=== PATIENT | female | born 1945 | race American Indian/Alaskan Native ===

== ENCOUNTER 2016-06-11 09:00 | Outpatient (CLI) | payer MEDICARE ==
[~2016-06-11 09:00] MED LIST: XYLOCAINE TOPICAL 2% TP ONE
[2016-06-11] MEDS ORDERED: SANTYL TP ONE (10:02)
[2016-06-12] MEDS ORDERED: XYLOCAINE TOPICAL 2% TP ONE (09:30)
[2016-06-12] MEDS ORDERED: SANTYL TP SCH (10:00)
== END 2016-06-11 09:01 | disposition home or self-care (01) ==
LOC: WOUND 09:00
PROVIDERS: ATTEND Internal Medicine
DX: I87.311 Chronic venous hypertension (idiopathic) with ulcer of right lower extremity (principal); L97.912 Non-pressure chronic ulcer of unspecified part of right lower leg with fat layer exposed; L89.893 Pressure ulcer of other site, stage 3; M21.371 Foot drop, right foot; I10 Essential (primary) hypertension; E78.2 Mixed hyperlipidemia; R26.9 Unspecified abnormalities of gait and mobility; Z85.038 Personal history of other malignant neoplasm of large intestine
CPT/HCPCS: 11042; 11045; G0463

== ENCOUNTER 2016-06-13 08:48 | Outpatient (CLI) | payer MEDICARE, OTHER ==
--- NOTE | 2016-06-16 09:49 | Vascular Lab Report ---
LOWER EXTREMITY VENOUS DUPLEX: REASON FOR EXAM: Bilateral leg pain. COMMENTS ON THE RIGHT: All veins visualized are freely compressible without evidence of internal echogenicity. Flow is spontaneous and phasic throughout. COMMENTS ON THE LEFT: All veins visualized are freely compressible without evidence of internal echogenicity. Flow is spontaneous and phasic throughout. IMPRESSION: No evidence of acute or chronic deep venous thrombosis in either lower extremity.
== END 2016-06-13 08:49 | disposition home or self-care (01) ==
LOC: VAS 08:48
PROVIDERS: ATTEND Internal Medicine
DX: T81.89XA Other complications of procedures, not elsewhere classified, initial encounter (principal); M79.604 Pain in right leg
CPT/HCPCS: 93970

== ENCOUNTER 2016-06-16 08:12 | Outpatient (CLI) | payer MEDICARE, OTHER ==
[2016-06-16] MEDS ORDERED: XYLOCAINE TOPICAL 2% TP ONE ×2 (08:30→14:25)
[2016-06-16] MEDS ORDERED: SANTYL TP ONE (09:18)
== END 2016-06-16 08:13 | disposition home or self-care (01) ==
LOC: WOUND 08:12
PROVIDERS: ATTEND Internal Medicine
DX: I87.311 Chronic venous hypertension (idiopathic) with ulcer of right lower extremity (principal); L97.912 Non-pressure chronic ulcer of unspecified part of right lower leg with fat layer exposed; M21.371 Foot drop, right foot; I10 Essential (primary) hypertension; E78.2 Mixed hyperlipidemia; L89.893 Pressure ulcer of other site, stage 3; R26.9 Unspecified abnormalities of gait and mobility; Z85.038 Personal history of other malignant neoplasm of large intestine

== ENCOUNTER 2016-06-20 08:10 | Outpatient (CLI) | payer MEDICARE, OTHER ==
--- NOTE | 2016-06-20 14:16 | Vascular Lab Report ---
LOWER EXTREMITY ARTERIAL DUPLEX: REASON FOR EXAM: Leg pain. COMMENTS ON THE RIGHT: Monophasic waveforms are seen proximally. Monophasic waveforms are seen distally. No significant velocity gradients are identified. No focal significant plaque is identified. Findings are consistent with abnormal perfusion. Findings are inconsistent with the ability to heal distal wounds. COMMENTS ON THE LEFT: Monophasic waveforms are seen proximally. Monophasic waveforms are seen distally. No significant velocity gradients are identified. No focal significant plaque is identified. Findings are consistent with abnormal perfusion. Findings are inconsistent with the ability to heal distal wounds. IMPRESSION: RIGHT: No hemodynamically significant arterial occlusive disease in arteries examined. LEFT:No hemodynamic significant arterial occlusive disease in arteries examined Monophasic waveforms suggestive inflow aortic or iliac disease. Clinical correlation recommended.
== END 2016-06-20 08:11 | disposition home or self-care (01) ==
LOC: VAS 08:10
PROVIDERS: ATTEND Internal Medicine
DX: M79.604 Pain in right leg (principal)
CPT/HCPCS: 93925

== ENCOUNTER 2016-06-23 08:11 | Outpatient (CLI) | payer MEDICARE, OTHER ==
[2016-06-23] MEDS ORDERED: XYLOCAINE TOPICAL 4% TP ONE (08:22)
[2016-06-23] MEDS ORDERED: SANTYL TP ONE (08:22)
== END 2016-06-23 08:12 | disposition home or self-care (01) ==
LOC: WOUND 08:11
PROVIDERS: ATTEND Internal Medicine
DX: I87.311 Chronic venous hypertension (idiopathic) with ulcer of right lower extremity (principal); L97.811 Non-pressure chronic ulcer of other part of right lower leg limited to breakdown of skin; E78.2 Mixed hyperlipidemia; M21.371 Foot drop, right foot; Z85.038 Personal history of other malignant neoplasm of large intestine

== ENCOUNTER 2016-07-02 08:14 | Outpatient (CLI) | payer MEDICARE, OTHER ==
[2016-07-02] MEDS ORDERED: XYLOCAINE TOPICAL 4% TP ONE ×2 (08:44→09:02)
[2016-07-02] MEDS ORDERED: SANTYL TP ONE ×2 (09:13→09:38)
== END 2016-07-02 08:15 | disposition home or self-care (01) ==
LOC: WOUND 08:14
PROVIDERS: ATTEND Internal Medicine
DX: I87.2 Venous insufficiency (chronic) (peripheral) (principal); L97.812 Non-pressure chronic ulcer of other part of right lower leg with fat layer exposed; L89.892 Pressure ulcer of other site, stage 2; E78.2 Mixed hyperlipidemia; I10 Essential (primary) hypertension; M21.371 Foot drop, right foot; E78.5 Hyperlipidemia, unspecified; Z85.038 Personal history of other malignant neoplasm of large intestine

== ENCOUNTER 2016-07-09 08:09 | Outpatient (CLI) | payer MEDICARE, OTHER ==
[2016-07-09] MEDS ORDERED: XYLOCAINE TOPICAL 4% TP ONE ×2 (08:31→08:41)
[2016-07-09] MEDS ORDERED: SANTYL TP ONE ×2 (09:55→10:11)
== END 2016-07-09 08:10 | disposition home or self-care (01) ==
LOC: WOUND 08:09
PROVIDERS: ATTEND Internal Medicine
DX: I87.311 Chronic venous hypertension (idiopathic) with ulcer of right lower extremity (principal); L97.812 Non-pressure chronic ulcer of other part of right lower leg with fat layer exposed; E78.2 Mixed hyperlipidemia; M21.371 Foot drop, right foot; L89.892 Pressure ulcer of other site, stage 2; E43 Unspecified severe protein-calorie malnutrition; Z85.038 Personal history of other malignant neoplasm of large intestine
CPT/HCPCS: 11042; C5271; Q4102

== ENCOUNTER 2016-07-21 08:09 | Outpatient (CLI) | payer MEDICARE, OTHER ==
[2016-07-21] MEDS ORDERED: XYLOCAINE TOPICAL 4% TP ONE ×2 (08:22→11:40)
[2016-07-21] MEDS ORDERED: SANTYL TP ONE (09:12)
== END 2016-07-21 08:10 | disposition home or self-care (01) ==
LOC: WOUND 08:09
PROVIDERS: ATTEND Internal Medicine
DX: T86.820 Skin graft (allograft) rejection (principal); I87.311 Chronic venous hypertension (idiopathic) with ulcer of right lower extremity; L97.812 Non-pressure chronic ulcer of other part of right lower leg with fat layer exposed; E78.2 Mixed hyperlipidemia; M21.371 Foot drop, right foot; E78.5 Hyperlipidemia, unspecified; E43 Unspecified severe protein-calorie malnutrition; Z86.73 Personal history of transient ischemic attack (TIA), and cerebral infarction without residual deficits; Z85.038 Personal history of other malignant neoplasm of large intestine; Y83.2 Surgical operation with anastomosis, bypass or graft as the cause of abnormal reaction of the patient, or of later complication, without mention of misadventure at the time of the procedure

== ENCOUNTER 2016-07-22 08:30 | Outpatient (CLI) | payer MEDICARE, OTHER ==
--- NOTE | 2016-07-22 08:59 | XRay Report ---
ROUTINE CHEST, TWO VIEWS: HISTORY: Shortness of breath. No comparison. There is mild hyperinflation versus good inspiration. The trachea, heart, mediastinal contour, lung carranza and bony thorax are unremarkable. IMPRESSION: Mild hyperinflation. No acute process.
== END 2016-07-22 08:31 | disposition home or self-care (01) ==
LOC: XRAY 08:30
PROVIDERS: ATTEND Internal Medicine
DX: J98.11 Atelectasis (principal)
CPT/HCPCS: 71020

== ENCOUNTER 2016-07-28 08:18 | Outpatient (CLI) | payer MEDICARE, OTHER ==
[~2016-07-28 08:18] MED LIST changes: +SANTYL TP ONE; -XYLOCAINE TOPICAL 2% TP ONE
[2016-07-28] MEDS ORDERED: XYLOCAINE TOPICAL 4% TP ONE ×2 (08:38→16:58)
[2016-07-28] MEDS ORDERED: SANTYL TP ONE (09:11)
== END 2016-07-28 08:19 | disposition home or self-care (01) ==
LOC: WOUND 08:18
PROVIDERS: ATTEND Internal Medicine
DX: T86.828 Other complications of skin graft (allograft) (autograft) (principal); I87.311 Chronic venous hypertension (idiopathic) with ulcer of right lower extremity; L97.812 Non-pressure chronic ulcer of other part of right lower leg with fat layer exposed; E78.2 Mixed hyperlipidemia; M21.371 Foot drop, right foot; E43 Unspecified severe protein-calorie malnutrition; Z85.038 Personal history of other malignant neoplasm of large intestine; Y83.2 Surgical operation with anastomosis, bypass or graft as the cause of abnormal reaction of the patient, or of later complication, without mention of misadventure at the time of the procedure
CPT/HCPCS: 11042; C5271; Q4102

== ENCOUNTER 2016-08-04 08:15 | Outpatient (CLI) | payer MEDICARE, OTHER ==
[2016-08-04] MEDS ORDERED: XYLOCAINE TOPICAL 4% TP ONE ×2 (08:31→11:45)
[2016-08-04] MEDS ORDERED: SANTYL TP ONE ×2 (09:26→11:45)
== END 2016-08-04 08:16 | disposition home or self-care (01) ==
LOC: WOUND 08:15
PROVIDERS: ATTEND Internal Medicine
DX: T86.821 Skin graft (allograft) (autograft) failure (principal); I87.311 Chronic venous hypertension (idiopathic) with ulcer of right lower extremity; L97.812 Non-pressure chronic ulcer of other part of right lower leg with fat layer exposed; M21.371 Foot drop, right foot; E78.2 Mixed hyperlipidemia; I10 Essential (primary) hypertension; E43 Unspecified severe protein-calorie malnutrition; Z85.038 Personal history of other malignant neoplasm of large intestine; Z86.73 Personal history of transient ischemic attack (TIA), and cerebral infarction without residual deficits; Y83.2 Surgical operation with anastomosis, bypass or graft as the cause of abnormal reaction of the patient, or of later complication, without mention of misadventure at the time of the procedure
CPT/HCPCS: 11042; 87075; 87116; C5271; Q4102

== ENCOUNTER 2016-08-18 08:17 | Outpatient (CLI) | payer MEDICARE, OTHER ==
[2016-08-18] MEDS ORDERED: XYLOCAINE TOPICAL 2% TP ONE ×2 (08:24→13:08)
[2016-08-18] MEDS ORDERED: SANTYL TP ONE (09:30)
== END 2016-08-18 08:18 | disposition home or self-care (01) ==
LOC: WOUND 08:17
PROVIDERS: ATTEND Internal Medicine
DX: T86.820 Skin graft (allograft) rejection (principal); I87.311 Chronic venous hypertension (idiopathic) with ulcer of right lower extremity; L97.812 Non-pressure chronic ulcer of other part of right lower leg with fat layer exposed; E78.2 Mixed hyperlipidemia; L89.893 Pressure ulcer of other site, stage 3; E43 Unspecified severe protein-calorie malnutrition; M21.371 Foot drop, right foot; Q89.9 Congenital malformation, unspecified; Z86.69 Personal history of other diseases of the nervous system and sense organs; Z85.038 Personal history of other malignant neoplasm of large intestine; Y83.2 Surgical operation with anastomosis, bypass or graft as the cause of abnormal reaction of the patient, or of later complication, without mention of misadventure at the time of the procedure

== ENCOUNTER 2016-08-25 08:17 | Outpatient (CLI) | payer MEDICARE, OTHER ==
[~2016-08-25 08:17] MED LIST changes: -SANTYL TP ONE; +XYLOCAINE TOPICAL 4% TP ONE
[2016-08-25] MEDS ORDERED: XYLOCAINE TOPICAL 4% TP ONE (08:45)
[2016-08-25] MEDS ORDERED: SANTYL TP ONE (09:08)
== END 2016-08-25 08:18 | disposition home or self-care (01) ==
LOC: WOUND 08:17
PROVIDERS: ATTEND Internal Medicine
DX: T86.820 Skin graft (allograft) rejection (principal); I87.311 Chronic venous hypertension (idiopathic) with ulcer of right lower extremity; L89.893 Pressure ulcer of other site, stage 3; L97.811 Non-pressure chronic ulcer of other part of right lower leg limited to breakdown of skin; E78.2 Mixed hyperlipidemia; M21.371 Foot drop, right foot; E43 Unspecified severe protein-calorie malnutrition; Z85.038 Personal history of other malignant neoplasm of large intestine; Y83.2 Surgical operation with anastomosis, bypass or graft as the cause of abnormal reaction of the patient, or of later complication, without mention of misadventure at the time of the procedure

== ENCOUNTER 2016-09-01 08:14 | Outpatient (CLI) | payer MEDICARE, OTHER ==
[2016-09-01] MEDS ORDERED: XYLOCAINE TOPICAL 4% TP ONE ×2 (08:25→17:28)
== END 2016-09-01 08:15 | disposition home or self-care (01) ==
LOC: WOUND 08:14
PROVIDERS: ATTEND Surgery
DX: T86.820 Skin graft (allograft) rejection (principal); I87.311 Chronic venous hypertension (idiopathic) with ulcer of right lower extremity; L97.811 Non-pressure chronic ulcer of other part of right lower leg limited to breakdown of skin; L89.893 Pressure ulcer of other site, stage 3; E43 Unspecified severe protein-calorie malnutrition; M21.371 Foot drop, right foot; E78.2 Mixed hyperlipidemia; E78.5 Hyperlipidemia, unspecified; Z85.038 Personal history of other malignant neoplasm of large intestine; Y83.2 Surgical operation with anastomosis, bypass or graft as the cause of abnormal reaction of the patient, or of later complication, without mention of misadventure at the time of the procedure
CPT/HCPCS: 97597

== ENCOUNTER 2016-09-08 08:18 | Outpatient (CLI) | payer MEDICARE, OTHER ==
[2016-09-08] MEDS ORDERED: XYLOCAINE TOPICAL 4% TP ONE ×2 (08:21→14:41)
== END 2016-09-08 08:19 | disposition home or self-care (01) ==
LOC: WOUND 08:18
PROVIDERS: ATTEND Internal Medicine
DX: T86.820 Skin graft (allograft) rejection (principal); I87.311 Chronic venous hypertension (idiopathic) with ulcer of right lower extremity; L89.893 Pressure ulcer of other site, stage 3; L97.812 Non-pressure chronic ulcer of other part of right lower leg with fat layer exposed; I10 Essential (primary) hypertension; M21.371 Foot drop, right foot; E78.5 Hyperlipidemia, unspecified; Z85.038 Personal history of other malignant neoplasm of large intestine; Y83.2 Surgical operation with anastomosis, bypass or graft as the cause of abnormal reaction of the patient, or of later complication, without mention of misadventure at the time of the procedure

== ENCOUNTER 2016-09-15 08:12 | Outpatient (CLI) | payer MEDICARE, OTHER ==
[2016-09-15] MEDS ORDERED: XYLOCAINE TOPICAL 4% TP ONE ×2 (08:13→11:25)
== END 2016-09-15 08:13 | disposition home or self-care (01) ==
LOC: WOUND 08:12
PROVIDERS: ATTEND Internal Medicine
DX: T86.821 Skin graft (allograft) (autograft) failure (principal); I87.311 Chronic venous hypertension (idiopathic) with ulcer of right lower extremity; L97.812 Non-pressure chronic ulcer of other part of right lower leg with fat layer exposed; L89.893 Pressure ulcer of other site, stage 3; E78.2 Mixed hyperlipidemia; M21.371 Foot drop, right foot; E78.5 Hyperlipidemia, unspecified; E43 Unspecified severe protein-calorie malnutrition; Z86.73 Personal history of transient ischemic attack (TIA), and cerebral infarction without residual deficits; Z85.038 Personal history of other malignant neoplasm of large intestine; Y83.2 Surgical operation with anastomosis, bypass or graft as the cause of abnormal reaction of the patient, or of later complication, without mention of misadventure at the time of the procedure

== ENCOUNTER 2016-09-22 08:12 | Outpatient (CLI) | payer MEDICARE, OTHER ==
[2016-09-22] MEDS ORDERED: XYLOCAINE TOPICAL 4% TP ONE (08:18)
== END 2016-09-22 08:13 | disposition home or self-care (01) ==
LOC: WOUND 08:12
PROVIDERS: ATTEND Internal Medicine
DX: T86.820 Skin graft (allograft) rejection (principal); I87.311 Chronic venous hypertension (idiopathic) with ulcer of right lower extremity; L97.812 Non-pressure chronic ulcer of other part of right lower leg with fat layer exposed; E78.2 Mixed hyperlipidemia; M21.371 Foot drop, right foot; E43 Unspecified severe protein-calorie malnutrition; E78.5 Hyperlipidemia, unspecified; Z85.038 Personal history of other malignant neoplasm of large intestine; Y83.2 Surgical operation with anastomosis, bypass or graft as the cause of abnormal reaction of the patient, or of later complication, without mention of misadventure at the time of the procedure

== ENCOUNTER 2016-09-29 08:14 | Outpatient (CLI) | payer MEDICARE, OTHER ==
[2016-09-29] MEDS ORDERED: XYLOCAINE TOPICAL 2% ONE (08:28)
[2016-09-29] MEDS ORDERED: XYLOCAINE TOPICAL 2% TP ONE (08:35)
== END 2016-09-29 08:15 | disposition home or self-care (01) ==
LOC: WOUND 08:14
PROVIDERS: ATTEND Surgery
DX: T86.821 Skin graft (allograft) (autograft) failure (principal); I87.311 Chronic venous hypertension (idiopathic) with ulcer of right lower extremity; L97.812 Non-pressure chronic ulcer of other part of right lower leg with fat layer exposed; L89.893 Pressure ulcer of other site, stage 3; E43 Unspecified severe protein-calorie malnutrition; E78.5 Hyperlipidemia, unspecified; M21.371 Foot drop, right foot; Z86.73 Personal history of transient ischemic attack (TIA), and cerebral infarction without residual deficits; Z85.038 Personal history of other malignant neoplasm of large intestine; Y83.2 Surgical operation with anastomosis, bypass or graft as the cause of abnormal reaction of the patient, or of later complication, without mention of misadventure at the time of the procedure
CPT/HCPCS: 99214; G0463

== ENCOUNTER 2016-10-13 08:14 | Outpatient (CLI) | payer MEDICARE, OTHER | END 2016-10-13 08:15 | disposition home or self-care (01) | LOC: WOUND 08:14 | PROVIDERS: ATTEND Internal Medicine | DX: T86.821 Skin graft (allograft) (autograft) failure (principal); I87.311 Chronic venous hypertension (idiopathic) with ulcer of right lower extremity; L97.812 Non-pressure chronic ulcer of other part of right lower leg with fat layer exposed; L89.893 Pressure ulcer of other site, stage 3; E78.2 Mixed hyperlipidemia; M21.371 Foot drop, right foot; E43 Unspecified severe protein-calorie malnutrition; Q89.9 Congenital malformation, unspecified; Z86.73 Personal history of transient ischemic attack (TIA), and cerebral infarction without residual deficits; Z85.038 Personal history of other malignant neoplasm of large intestine; Y83.2 Surgical operation with anastomosis, bypass or graft as the cause of abnormal reaction of the patient, or of later complication, without mention of misadventure at the time of the procedure ==

== ENCOUNTER 2016-10-27 11:22 | Outpatient (CLI) | payer MEDICARE, OTHER | END 2016-10-27 11:23 | disposition home or self-care (01) | LOC: WOUND 11:22 | PROVIDERS: ATTEND Internal Medicine | DX: T86.820 Skin graft (allograft) rejection (principal); I87.311 Chronic venous hypertension (idiopathic) with ulcer of right lower extremity; L97.812 Non-pressure chronic ulcer of other part of right lower leg with fat layer exposed; L89.893 Pressure ulcer of other site, stage 3; E78.2 Mixed hyperlipidemia; M21.371 Foot drop, right foot; E43 Unspecified severe protein-calorie malnutrition; E78.5 Hyperlipidemia, unspecified; Z85.038 Personal history of other malignant neoplasm of large intestine; Y83.2 Surgical operation with anastomosis, bypass or graft as the cause of abnormal reaction of the patient, or of later complication, without mention of misadventure at the time of the procedure | CPT/HCPCS: 97597 ==

== ENCOUNTER 2016-11-19 15:43 | Outpatient (CLI) | payer MEDICARE, OTHER ==
--- NOTE | 2016-11-20 08:02 | XRay Report ---
CHEST XRAY, 2 VIEWS: History: Cough. Findings: There is mild diffuse interstitial coarsening. The lungs are hyperexpanded but clear. No infiltrate, pleural fluid or pneumothorax is detected. The cardiac silhouette and pulmonary vasculature are within normal limits for technique. The bony thorax is unremarkable. IMPRESSION: Changes consistent with COPD. No acute cardiopulmonary process. No significant change since 07/22/16.
== END 2016-11-19 15:44 | disposition home or self-care (01) ==
LOC: XRAY 15:43
PROVIDERS: ATTEND Family Medicine
DX: R05 Cough (principal)
CPT/HCPCS: 71020